=== PATIENT | female | born 1975 | race Caucasian/White ===

== ENCOUNTER 2020-06-30 13:20 | Emergency (ER) | payer OTHER ==
[~2020-06-30] VITALS: Ht 162.6 cm; Wt 119.7 kg
[2020-06-30 13:29] VITALS: BP 142/100
--- NOTE | 2020-06-30 13:33 | NUR ---
PT TAKEN TO BED 7.
--- NOTE | 2020-06-30 13:35 | NUR ---
45 YO F BIB SELF FOR C/C OF 8/10 LOWER ABDOMINAL CRAMPS AND VAGINAL BLEEDING LASTING FOR 18 DAYS. PT STATES SHE IS EXPERIENCING MODERATE BLEEDING (8 PADS A DAY) WITH BLOOD CLOTS.PT WAS SEEN AT URGENT CARE AND WAS PRESCRIBED 0.5MG OF PROVERA FOR 5 DAYS TO CONTROL BLEEDING. PT STATES HER BLEEDING SLOWED BUT RETURNED AFTER SHE WAS DONE WITH HER COURSE OF THE MEDICATION. PT REPORTS DIZZINESS/LIGHTHEADEDNESS, DENIES SOB, N/V. PT IS A0. PT REPORTS DX OF UTERINE FIBROIDS IN 2018. BED LOCKED AND IN LOWEST POSITION. SIDE RAILS X1.
--- NOTE | 2020-06-30 13:52 | NUR ---
Dr. Cisneros is evaluating the patient at bedside.
--- NOTE | 2020-06-30 14:02 | NUR ---
US AT BEDSIDE
--- NOTE | 2020-06-30 14:26 | NUR ---
LAB AT BEDSIDE
[2020-06-30 14:39] LABS: BASOPHILS # (AUTO) 0.1 K/uL (0.00-0.22); BASOPHILS % (AUTO) 0.7 % (0.0-2.0); EOSINOPHILS # (AUTO) 0.4 K/uL (0-0.4); EOSINOPHILS % (AUTO) 2.8 % (0.0-4.0); HEMATOCRIT 37.3 % (36-48); HEMOGLOBIN 12.2 g/dL (12.0-16.0); LYMPHOCYTES # (AUTO) 2.4 K/uL (2.5-16.5); LYMPHOCYTES % (AUTO) 17.2 % (20.5-51.1); MEAN CORPUSCULAR HEMOGLOBIN 27 pg (27-31); MEAN CORPUSCULAR HGB CONC 33 g/dL (33-37); MEAN CORPUSCULAR VOLUME 81.8 fL (80-94); MONOCYTES # (AUTO) 0.7 K/uL (0.8-1.0); MONOCYTES % (AUTO) 5.3 % (1.7-9.3); NEUTROPHILS # (AUTO) 10.3 K/uL (1.8-7.7); PLATELET COUNT (AUTO) 367 K/uL (140-450); RED BLOOD CELL COUNT(AUTO) 4.56 MIL/uL (4.20-5.40); RED CELL DISTRIBUTION WIDTH 16.2 % (11.6-13.7); WHITE BLOOD COUNT (AUTO) 13.9 K/uL (4.8-10.8)
[2020-06-30 14:53] LABS: PROTHROMBIN TIME 10.3 secs (10.8-13.4)
[2020-06-30 14:55] LABS: ALBUMIN 3.8 g/dL (3.4-5.0); ANION GAP 13.2 (8-16); CARBON DIOXIDE 27.7 mmol/L (21-32); POTASSIUM 3.9 mmol/L (3.5-5.1); TOTAL BILIRUBIN 0.4 mg/dL (0.0-1.0)
[2020-06-30 15:43] VITALS: BP 142/100
--- NOTE | 2020-06-30 15:43 | NUR ---
Patient discharged with v/s stable. Written and verbal after care instructions given and explained. Patient verbalized understanding. Ambulatory with steady gait. All questions addressed prior to discharge. Advised to follow up with PMD.
== END 2020-06-30 15:43 | disposition home or self-care (01) ==
LOC: MED 13:20
DX: N93.8 Other specified abnormal uterine and vaginal bleeding (principal); Z88.5 Allergy status to narcotic agent
CPT/HCPCS: 36415; 76856; 80053; 81025; 85025; 85610; 86886; 86900; 86901; 99284

== ENCOUNTER 2020-09-24 21:15 | Emergency (ER) | payer OTHER ==
[~2020-09-24] VITALS: Ht 167.6 cm; Wt 118.8 kg
[2020-09-24 21:29] VITALS: BP 138/79
--- NOTE | 2020-09-24 21:36 | NUR ---
EKG PERFORMED IN TRIAGE ROOM. EKG READS SINUS TACHYCARDIA@ 100
--- NOTE | 2020-09-24 21:38 | NUR ---
patient ambulated to lobby, waiting for room.
--- NOTE | 2020-09-24 21:50 | NUR ---
heart palpitations x 2 days, pt states "i have anxiety too", denies chest pain, nasuea, vomiting, cough. No otc medications taken, patient reports being treated for ear infection by pcp, pain 12/25. Pt aaox4, no s/sx of distress noted, respirations even and unlabored, vital signs stable. med hx: anxiety, pituitary gland tumor, uterine ablasion allergies: codeine, morphine
--- NOTE | 2020-09-24 22:31 | NUR ---
Dr. Laird examining patient.
[2020-09-24] MEDS ORDERED: LORazepam 1 MG TAB PO ONE ×2 (22:45→22:50)
[2020-09-24] MEDS ORDERED: ATA25 PO (22:47)
[2020-09-24 23:08] VITALS: BP 138/79
--- NOTE | 2020-09-24 23:08 | NUR ---
Patient discharged with v/s stable. Written and verbal after care instructions given and explained. Patient alert, oriented and verbalized understanding of instructions. Ambulatory with steady gait. All questions addressed prior to discharge. ID band removed. Patient advised to follow up with PMD. Rx of Hydroxyzine given. Patient educated on indication of medication including possible reaction and side effects. Opportunity to ask questions provided and answered.
== END 2020-09-24 23:08 | disposition home or self-care (01) ==
LOC: MED 21:15
DX: F41.0 Panic disorder [episodic paroxysmal anxiety] (principal); Z88.5 Allergy status to narcotic agent
CPT/HCPCS: 93005; 99283

== ENCOUNTER 2023-04-08 23:17 | Emergency (ER) | payer OTHER ==
[~2023-04-08] VITALS: Ht 162.6 cm; Wt 106.6 kg
[~2023-04-08 23:17] MED LIST: ATA25 PO
[2023-04-08 23:25] VITALS: BP 165/90; PULSE 94; RESP 16; TEMP 97.3
[2023-04-09] MEDS ORDERED: AMOX1TAB8 PO (00:40)
[2023-04-09 00:45] VITALS: BP 165/90; PULSE 94; RESP 16; TEMP 97.3
== END 2023-04-09 00:45 | disposition home or self-care (01) ==
LOC: MED 23:17
DX: J20.9 Acute bronchitis, unspecified (principal); Z88.5 Allergy status to narcotic agent; Z79.899 Other long term (current) drug therapy
CPT/HCPCS: 99283